=== PATIENT | male | born 1970 | race Caucasian/White ===

== ENCOUNTER 2022-03-26 22:28 | Emergency (ER) | payer BC ==
[2022-03-26] MEDS ORDERED: DIPHTH,PERTUSS(ACELL),TET 0.5 ML DISP.SYRIN IM ONE ×2 (22:41→22:44)
[2022-03-26 22:42] VITALS: BP 156/89; PULSE 84; TEMP 98.5; BMI 29.1
[2022-03-26] MEDS ORDERED: CEPHALEXIN MONOHYDRATE 500 MG CAPSULE (UD) PO ONE (23:25)
[2022-03-26] MEDS ORDERED: CIPROFLOXACIN 500 MG TABLET (RESTRICTED TO ID) PO ONE (23:32)
[2022-03-26] MEDS ORDERED: CIPROFLOXACIN 250 MG TABLET (RESTRICTED TO ID) PO ONE (23:39)
== END 2022-03-26 23:46 | disposition home or self-care (01) ==
LOC: FER 22:28
PROC: 0HQNXZZ Repair Left Foot Skin, External Approach (ICD-10-PCS; principal; 2022-03-26)
PROC: 3E0234Z Introduction of Serum, Toxoid and Vaccine into Muscle, Percutaneous Approach (ICD-10-PCS; 2022-03-26)
DX: S91.312A Laceration without foreign body, left foot, initial encounter (principal); W25.XXXA Contact with sharp glass, initial encounter
CPT/HCPCS: 90715; 99283-25

== ENCOUNTER 2022-07-18 13:38 | Emergency (ER) | payer BC ==
[2022-07-18 13:56] VITALS: BP 159/102; PULSE 94; RESP 18; TEMP 99; BMI 29.9
== END 2022-07-18 13:54 | disposition home or self-care (01) ==
LOC: FER 13:38
DX: Z76.0 Encounter for issue of repeat prescription (principal)
CPT/HCPCS: 99281-25